=== PATIENT | female | born 1960 | race Asian ===

== ENCOUNTER 2017-05-20 15:09 | Emergency (ER) | payer SELFPAY ==
[~2017-05-20] VITALS: Ht 167.6 cm; Wt 96.6 kg
[2017-05-20 16:46] VITALS: BP 157/78
[2017-05-20] MEDS ORDERED: TETANUS-DIPTH-ACEL PERTUSSIS 0.5ML SYRG IM ONE (17:00)
[2017-05-20] MEDS ORDERED: BACITRACIN-POLYMYXIN B TOPICAL OINT UD TOP ONE (17:00)
== END 2017-05-20 17:46 | disposition home or self-care (01) ==
LOC: ER 15:09
DX: S61.411A Laceration without foreign body of right hand, initial encounter (principal); W26.0XXA Contact with knife, initial encounter; Y93.89 Activity, other specified; Y92.89 Other specified places as the place of occurrence of the external cause; Y99.8 Other external cause status
CPT/HCPCS: 90471; 90715